=== PATIENT | male | born 2000 | race Caucasian/White ===

== ENCOUNTER 2021-01-09 13:22 | Outpatient (CLI) | payer OTHER | END 2021-01-09 13:23 | disposition home or self-care (01) | LOC: BICMAMMO 13:22 | PROVIDERS: ATTEND Internal Medicine | DX: N63.24 Unspecified lump in the left breast, lower inner quadrant (principal) | CPT/HCPCS: 77066; G0279 ==

== ENCOUNTER → 2021-01-19 | Day surgery (SDC) | payer OTHER | LOC: BICULT 12:05 | PROVIDERS: ATTEND Internal Medicine | PROC: 0H9U3ZX Drainage of Left Breast, Percutaneous Approach, Diagnostic (ICD-10-PCS; principal; 2021-01-19) | DX: D49.3 Neoplasm of unspecified behavior of breast (principal) | CPT/HCPCS: 19083; 88305; 88323 ==